=== PATIENT | female | born 1975 | race Caucasian/White ===

== ENCOUNTER 2017-09-25 14:26 | Emergency (ER) | payer OTHER ==
[~2017-09-25] VITALS: Ht 157.5 cm; Wt 77.1 kg
[2017-09-25] MEDS ORDERED: predniSONE 10 MG TABLET PO ONE (15:00)
[2017-09-25] MEDS ORDERED: IPRATROPIUM BROMIDE 0.5 MG/2.5 ML NEBU NEB ONE (15:00)
[2017-09-25] MEDS ORDERED: ALBUTEROL SULFATE 2.5 MG/3 ML NEBU NEB ONE (15:00)
[2017-09-25] MEDS ORDERED: ALBUTEROL SULFATE 2.5 MG/3 ML NEBU ONE (15:22)
[2017-09-25] MEDS ORDERED: IPRATROPIUM BROMIDE 0.5 MG/2.5 ML NEBU ONE (15:22)
[2017-09-25 15:41] VITALS: BP 138/99
--- NOTE | 2017-09-25 15:41 | NUR ---
Patient discharged to home in stable conditon. Written and verbal after care instructions given. Patient verbalizes understanding of instructions.PT SAYS FEELS BETTER, WALKS IN STEADY GAIT.
[2017-09-25] MEDS ORDERED: predniSONE 10 MG TABLET ONE (15:43)
[2017-09-25] MEDS ORDERED: predniSONE 50 MG TABLET ONE (15:44)
== END 2017-09-25 15:42 | disposition home or self-care (01) ==
LOC: ER 14:34
DX: J40 Bronchitis, not specified as acute or chronic (principal); I10 Essential (primary) hypertension
CPT/HCPCS: A4663; J3590; J7512